=== PATIENT | female | born 1935 | race African-American/Black ===

== ENCOUNTER 2017-02-06 23:30 | Emergency (ER) | payer MEDICARE, OTHER ==
--- NOTE | ~2017-02-06 | EKG ---
PATIENT: TREVOR BARBER UNIT #: [id number] Ventricular Rate: 98 BPM Atrial Rate: 98 BPM P-R Interval: 142 ms QRS Duration: 142 ms Q-T Interval: 400 ms QTC Calculation(Bezet): 510 ms P [place]: 73 degrees Calculated R [place]: 7 degrees Calculated T [place]: 26 degrees Diagnosis Line: Normal sinus rhythm Diagnosis Line: Non-specific intra-ventricular conduction block Diagnosis Line: Cannot rule out Anterior infarct , age Diagnosis Line: undetermined Diagnosis Line: Abnormal ECG Diagnosis Line: When compared with ECG of 17-NOV-2015 14:40, Diagnosis Line: Non-specific intra-ventricular conduction block Diagnosis Line: has replaced Left bundle branch block Diagnosis Line: Minimal criteria for Anterior infarct are now Diagnosis Line: Present Diagnosis Line: Confirmed by NISHA QIU MD ([id number]) on Diagnosis Line: 02/07/2017 8:55:19 AM INTERPRETING MD: UYEN AMAYA
[~2017-02-06 23:30] MED LIST: ACETAMINOPHEN650 M4 PO; ALLERCLEAR10 MG PO; AMLODIPINE BES2.5 MG PO; AMLODIPINE BESYL5 MG PO; ASPIRIN81 M1 PO; ASPIRIN81 M2 PO; ASPIRIN81 MG PO; ATENOLOL25 MG PO; ATENOLOL50 MG PO; AZELASTINE137 MCG/0.; AZELASTINE205.5 MCG/ INH; BACTRIM DS TABL1 TA1 PO; CALCIUM 500 + D1 TAB PO; CIPRO PO; CLARITIN10 M2 PO; EXELON1 EACH TD; EXELON1 PATCH .2 EXT; FAMVIR250 MG PO; FUROSEMIDE40 MG PO; HCTZ PO; HYDROCHLOROTHIA25 MG PO; KLOR-CON 88 ME1 PO; LEVOTHYROXINE25 MCG PO; LISINOPRIL20 MG PO; LOW DOSE ASPIRI81 M1 PO; MEGACE ORA400 MG/10 PO; MONTELUKAST SOD10 MG PO; MULTI VITAMIN1 EACH PO; MULTIPLE VITAMI1 T10 PO; NAMENDA XR28 MG PO; NAMENDA10 MG PO; NIFEDIPINE ER90 MG PO; NORVASC2.5 MG PO; OMEPRAZOLE20 M1 PO; POTASSIUM CHLOR8 MEQ PO; PYRIDIUM PO; SINGULAIR PO; TENORMIN25 MG PO; TOFRANIL10 MG PO; TOFRANIL25 MG PO; [UNRECOGNIZED DRUG - OTHER]
[2017-02-07 01:14] LABS: POC - CKMB 6.2 ng/mL (0.0-7.9); POC - TROPONIN <0.05 ng/mL (<=0.05)
[2017-02-07 01:37] LABS: URINE SOURCE CLEAN CATCH
[2017-02-07 01:42] LABS: BASOPHIL# 0.1 X10e3 (0-0.3); BASOPHIL% 1.1 % (0-2.5); EOSINOPHIL# 0.2 X10e3 (0-0.7); EOSINOPHIL% 2.6 % (0.0-7.0); HEMATOCRIT 38.6 % (35.0-45.0); HEMOGLOBIN 12.1 gm/dL (12.0-16.0); LYMPHOCYTE# 2.4 X10e3 (1.0-3.5); LYMPHOCYTE% 35.7 % (17.0-45.0); MEAN CELL VOLUME 87.7 FL (83-96); MEAN CORPUSCULAR HEMOGLOBIN 27.4 PG (28-34); MEAN CORPUSCULAR HGB CONC 31.3 g/dL (30-36); MEAN PLATELET VOLUME 7.9 FL (6.5-11.5); MONOCYTE# 0.8 X10e3 (0-1.0); MONOCYTE% 12.2 % (3.0-12.0); NEUTROPHIL# 3.2 X10e3 (1.5-7.1); NEUTROPHIL% 48.4 % (40-75); PLATELET COUNT 253 X10e3 (140-420); RED BLOOD COUNT 4.39 X10e (3.90-5.30); RED CELL DISTRIBUTION WIDTH 15.8 % (11.0-15.5); WHITE BLOOD COUNT 6.6 X10e3 (4.0-10.5)
[2017-02-07 01:44] LABS: DIFF IND NO
[2017-02-07 01:44] LABS: URINE APPEARANCE CLEAR; URINE BILIRUBIN NEG (NEG); URINE BLOOD NEG (NEG); URINE COLOR YELLOW; URINE GLUCOSE NEG (NEG); URINE KETONE NEG (NEG); URINE LEUKOCYTE ESTERASE TRACE (NEG); URINE NITRATE NEG (NEG); URINE PROTEIN NEG (NEG); URINE SPECIFIC GRAVITY 1.011 (1.003-1.035)
[2017-02-07 01:46] LABS: URBCS1 AUWI 0-2 /[HPF] (0-2); URINE BACTERIA AUWI NEG (NEGATIVE); URINE SQUAMOUS EPITHELIAL CELL NONE SEEN /[HPF]; UWBCS1 AUWI 0-2 (0-5)
[2017-02-07 01:47] LABS: CULTURE INDICATED? NO
[2017-02-07 02:06] LABS: ALBUMIN SERUM 3.7 g/dL (3.5-5.0); BILIRUBIN,TOTAL 0.2 mg/dL (0.2-2.0); BUN/CREATININE RATIO 23.33; CALCIUM SERUM 9.1 mg/dL (8.4-10.2); CREATININE SERUM 0.9 mg/dL (0.6-1.4); POTASSIUM 3.7 mmol/L (3.5-5.1); PROTEIN TOTAL SERUM 6.9 g/dL (6.0-8.3)
[2017-02-07 02:10] LABS: BILIRUBIN, DIRECT 0.1 mg/dL (0.0-0.2); BILIRUBIN,INDIRECT 0.1 mg/dL (0.0-0.9)
[2017-04-21] MEDS ORDERED: NORVASC PO (11:12)
[2017-04-21] MEDS ORDERED: SEROQUEL25 MG PO (11:13)
[2017-04-21] MEDS ORDERED: CLARITIN10 M2 PO (11:13)
[2017-04-21] MEDS ORDERED: REMERON15 MG PO (11:13)
[2017-04-21] MEDS ORDERED: NAMENDA XR28 MG PO (11:14)
[2017-04-21] MEDS ORDERED: MONTELUKAST SOD10 MG PO (11:14)
[2017-04-21] MEDS ORDERED: EXELON1 EACH TD (11:15)
== END 2017-02-07 03:10 | disposition home or self-care (01) ==
LOC: CED 23:30
PROVIDERS: Emergency Medicine
DX: R42 Dizziness and giddiness (principal); I10 Essential (primary) hypertension; F03.90 Unspecified dementia, unspecified severity, without behavioral disturbance, psychotic disturbance, mood disturbance, and anxiety
CPT/HCPCS: 36415; 80048; 80076; 81003; 82553; 82947; 84484; 85025; 93005; 99284

== ENCOUNTER 2017-02-27 08:28 | Emergency (ER) | payer MEDICARE, OTHER ==
--- NOTE | ~2017-02-27 | EKG ---
PATIENT: TREVOR BARBER UNIT #: [id number] Ventricular Rate: 101 BPM Atrial Rate: 101 BPM P-R Interval: 142 ms QRS Duration: 136 ms Q-T Interval: 398 ms QTC Calculation(Bezet): 516 ms P [place]: 44 degrees Calculated R [place]: 94 degrees Calculated T [place]: -6 degrees Diagnosis Line: Sinus tachycardia Diagnosis Line: Rightward axis Diagnosis Line: Left ventricular hypertrophy with QRS widening and Diagnosis Line: repolarization abnormality Diagnosis Line: Abnormal ECG Diagnosis Line: When compared with ECG of 07-FEB-2017 00:59, Diagnosis Line: Questionable change in QRS axis Diagnosis Line: Inverted T waves have replaced nonspecific T wave Diagnosis Line: abnormality in Inferior leads Diagnosis Line: Confirmed by EDIN RODRÍGUEZ MD ([id number]) on 02/27/2017 Diagnosis Line: 6:48:36 PM INTERPRETING MD: MARCOS AMAYA
[2017-02-27 09:06] LABS: BASOPHIL% 0.6 % (0-2.5); EOSINOPHIL# 0.3 X10e3 (0-0.7); EOSINOPHIL% 3.3 % (0.0-7.0); HEMATOCRIT 44.9 % (35.0-45.0); HEMOGLOBIN 14.1 gm/dL (12.0-16.0); LYMPHOCYTE# 2.4 X10e3 (1.0-3.5); LYMPHOCYTE% 30.2 % (17.0-45.0); MEAN CELL VOLUME 89.6 FL (83-96); MEAN CORPUSCULAR HEMOGLOBIN 28.1 PG (28-34); MEAN CORPUSCULAR HGB CONC 31.3 g/dL (30-36); MEAN PLATELET VOLUME 8.3 FL (6.5-11.5); MONOCYTE# 0.9 X10e3 (0-1.0); MONOCYTE% 11.5 % (3.0-12.0); NEUTROPHIL# 4.4 X10e3 (1.5-7.1); NEUTROPHIL% 54.4 % (40-75); PLATELET COUNT 252 X10e3 (140-420); RED BLOOD COUNT 5.01 X10e (3.90-5.30); RED CELL DISTRIBUTION WIDTH 16.3 % (11.0-15.5); WHITE BLOOD COUNT 8.1 X10e3 (4.0-10.5)
[2017-02-27 09:07] LABS: DIFF IND NO
[2017-02-27 09:50] LABS: BUN/CREATININE RATIO 17.77; CALCIUM SERUM 9.1 mg/dL (8.4-10.2); CREATININE SERUM 0.9 mg/dL (0.6-1.4); POTASSIUM 3.9 mmol/L (3.5-5.1)
[2017-02-27 09:58] LABS: URINE SOURCE CATH
[2017-02-27 10:03] LABS: URINE APPEARANCE CLEAR; URINE BILIRUBIN NEG (NEG); URINE BLOOD NEG (NEG); URINE COLOR YELLOW; URINE GLUCOSE NEG (NEG); URINE KETONE NEG (NEG); URINE LEUKOCYTE ESTERASE NEG (NEG); URINE NITRATE NEG (NEG); URINE PH 7.5 (5-8); URINE PROTEIN NEG (NEG)
[2017-02-27 10:17] LABS: CULTURE INDICATED? NO
[2017-04-21] MEDS ORDERED: NORVASC PO (11:12)
[2017-04-21] MEDS ORDERED: SEROQUEL25 MG PO (11:13)
[2017-04-21] MEDS ORDERED: CLARITIN10 M2 PO (11:13)
[2017-04-21] MEDS ORDERED: REMERON15 MG PO (11:13)
[2017-04-21] MEDS ORDERED: NAMENDA XR28 MG PO (11:14)
[2017-04-21] MEDS ORDERED: MONTELUKAST SOD10 MG PO (11:14)
[2017-04-21] MEDS ORDERED: EXELON1 EACH TD (11:15)
== END 2017-02-27 11:10 | disposition home or self-care (01) ==
LOC: CED 08:28
PROVIDERS: Emergency Medicine
DX: I10 Essential (primary) hypertension (principal); R53.1 Weakness; G30.9 Alzheimer's disease, unspecified
CPT/HCPCS: 36415; 51701; 80048; 81003; 85025; 93005; 96360; 99284

== ENCOUNTER 2017-03-25 13:13 | Emergency (ER) | payer MEDICARE, OTHER ==
--- NOTE | ~2017-03-25 | CT2 ---
[facility] A Service of [facility] RADIOLOGY TEXT RESULTS PATIENT: TREVOR BARBER LOCATION: [facility] : 37 UNIT #: [id number] AGE: [address]: Jarred Lopez MD SEX: F ORDER DR: [id number] [facility] [address] [place]. [place], [place] [address] [id number] MR#: [id number] Acc #: [id number] NAME: TREVOR BARBER : 1935 SEX: F STUDY DATE/TIME: 03/25/2017 15:59 UNIT: SURJIT ROOM: STUDY DESCRIPTION: CT Abd and Pelv W Cont Attending Physician: Jarred Lopez M.D. Ordering Physician: Gloria Rivers M.D. Primary Care Physician: Tawanna Hogan M.D. MEDICAL IMAGING REPORT This report is preliminary unless electronic signature is present EXAM CT abdomen and pelvis with IV contrast HISTORY Abdomen pain and low back pain for [address] exam was performed with one or more of the following radiation dose reduction techniques: automatic exposure control, adjustment of mA and/or kV according to patient size, and iterative reconstruction. FINDINGS CT abdomen and pelvis was performed with IV contrast. CT ABDOMEN: Mild chronic linear atelectasis or scarring in both lung bases. The liver, gallbladder, spleen, pancreas, and adrenal glands are normal. Incidental cyst in the mid-left kidney. Mild developmental lobulation or scarring in the renal cortex bilaterally. No bowel obstruction or urinary obstruction. No free fluid or inflammatory stranding. Normal caliber abdominal aorta. CT PELVIS: Incidental small calcified uterine fibroids. The adnexa are unremarkable. No bowel dilatation. No inflammatory stranding or ascites. Urinary bladder is normal. IMPRESSION 1. No acute findings in the abdomen or pelvis. 2. No bowel obstruction or urinary obstruction. 3. No adenopathy or ascites. 4. Incidental small calcified uterine fibroids. Dictated by... [facility] A Service [facility] RADIOLOGY TEXT RESULTS PATIENT: TREVOR BARBER LOCATION: [facility] : 37 UNIT #: [id number] AGE: [address]: Jarred Lopez MD SEX: F ORDER DR: Christopher Greene M.D. THIS IS AN ELECTRONICALLY VERIFIED REPORT Christopher Greene M.D. at 03/26/2017 11:29 PM JOSÉ MIGUEL/sol TD: 03/26/2017 02:46 JOB #: [id number] MEDICAL IMAGING REPORT Page 1 of 1 COPY
[2017-03-25 14:41] LABS: URINE SOURCE CLEAN CATCH
[2017-03-25 14:48] LABS: URINE APPEARANCE CLEAR; URINE BILIRUBIN NEG (NEG); URINE BLOOD NEG (NEG); URINE COLOR YELLOW; URINE GLUCOSE NEG (NEG); URINE KETONE TRACE (NEG); URINE LEUKOCYTE ESTERASE TRACE (NEG); URINE NITRATE NEG (NEG); URINE PH 5.5 (5-8); URINE PROTEIN NEG (NEG); URINE SPECIFIC GRAVITY 1.025 (1.003-1.035); URINE UROBILINOGEN 0.2 MG/DL (NEG)
[2017-03-25 14:48] LABS: BASOPHIL# 0.1 X10e3 (0-0.3); BASOPHIL% 0.9 % (0-2.5); EOSINOPHIL# 0.1 X10e3 (0-0.7); EOSINOPHIL% 1.8 % (0.0-7.0); HEMOGLOBIN 11.9 gm/dL (12.0-16.0); LYMPHOCYTE# 2.2 X10e3 (1.0-3.5); LYMPHOCYTE% 27.3 % (17.0-45.0); MEAN CELL VOLUME 90.3 FL (83-96); MEAN CORPUSCULAR HEMOGLOBIN 28.2 PG (28-34); MEAN CORPUSCULAR HGB CONC 31.2 g/dL (30-36); MONOCYTE# 0.8 X10e3 (0-1.0); MONOCYTE% 9.9 % (3.0-12.0); NEUTROPHIL# 4.8 X10e3 (1.5-7.1); NEUTROPHIL% 60.1 % (40-75); PLATELET COUNT 251 X10e3 (140-420); RED BLOOD COUNT 4.21 X10e (3.90-5.30); RED CELL DISTRIBUTION WIDTH 15.4 % (11.0-15.5)
[2017-03-25 14:56] LABS: URBCS1 AUWI 0-2 /[HPF] (0-2); URINE BACTERIA AUWI NEG (NEGATIVE); URINE SQUAMOUS EPITHELIAL CELL NONE SEEN /[HPF]; UWBCS1 AUWI 0-2 (0-5)
[2017-03-25 14:59] LABS: CULTURE INDICATED? NO
[2017-03-25 15:05] LABS: PROTHROMBIN TIME (PATIENT) 10.8 SECONDS (10.0-11.7)
[2017-03-25 15:10] LABS: ALBUMIN SERUM 3.5 g/dL (3.5-5.0); BILIRUBIN, DIRECT 0.1 mg/dL (0.0-0.2); BILIRUBIN,INDIRECT 0.3 mg/dL (0.0-0.9); BILIRUBIN,TOTAL 0.4 mg/dL (0.2-2.0); CALCIUM SERUM 9.4 mg/dL (8.4-10.2); GLOM FILT RATE Estimated 61.6 mL/min (>60); POTASSIUM 3.7 mmol/L (3.5-5.1)
[2017-03-25 15:19] LABS: DIFF IND NO
[2017-04-21] MEDS ORDERED: NORVASC PO (11:12)
[2017-04-21] MEDS ORDERED: SEROQUEL25 MG PO (11:13)
[2017-04-21] MEDS ORDERED: REMERON15 MG PO (11:13)
[2017-04-21] MEDS ORDERED: CLARITIN10 M2 PO (11:13)
[2017-04-21] MEDS ORDERED: MONTELUKAST SOD10 MG PO (11:14)
[2017-04-21] MEDS ORDERED: NAMENDA XR28 MG PO (11:14)
[2017-04-21] MEDS ORDERED: EXELON1 EACH TD (11:15)
== END 2017-03-25 18:20 | disposition home or self-care (01) ==
LOC: CED 13:13
PROVIDERS: Emergency Medicine
DX: R10.9 Unspecified abdominal pain (principal); I10 Essential (primary) hypertension; F32.9 Major depressive disorder, single episode, unspecified; F03.90 Unspecified dementia, unspecified severity, without behavioral disturbance, psychotic disturbance, mood disturbance, and anxiety; D17.9 Benign lipomatous neoplasm, unspecified
CPT/HCPCS: 36415; 74177; 80048; 80076; 81003; 85025; 85610; 85730; 99284; Q9967